=== PATIENT | male | born 1970 | race Two or more races ===

== ENCOUNTER 2017-04-05 14:23 | Emergency (ER) | payer MEDICAID ==
[~2017-04-05] VITALS: Ht 165.1 cm; Wt 76.0 kg
[2017-04-05 14:29] VITALS: BP 138/87
== END 2017-04-05 16:10 | disposition home or self-care (01) ==
LOC: ER 14:59
DX: Z48.01 Encounter for change or removal of surgical wound dressing (principal)
CPT/HCPCS: 99283

== ENCOUNTER 2022-09-21 14:25 | Emergency (ER) | payer MEDICAID, MEDICARE ==
[~2022-09-21] VITALS: Ht 165.1 cm; Wt 73.0 kg
[2022-09-21 14:32] VITALS: BP 143/89
[2022-09-21] MEDS ORDERED: BACITRACIN ZINC OINT UDPKT TOP ONE (16:15)
[2022-09-21] MEDS ORDERED: LIDOCAINE HCL/PF 1% 10 MG/ML 5ML VIAL INFIL ONE (16:15)
[2022-09-21] MEDS ORDERED: CEPH500C2 MT (17:56)
[2022-09-21] MEDS ORDERED: SULF1TAB48 MT (17:56)
== END 2022-09-21 18:26 | disposition home or self-care (01) ==
LOC: ER 14:25
DX: L02.414 Cutaneous abscess of left upper limb (principal)
CPT/HCPCS: 10060; 99283; J3490; Z7610